=== PATIENT | female | born 1955 | race Caucasian/White ===

== ENCOUNTER 2020-07-14 06:54 | Outpatient (NON) | payer OTHER, SELFPAY ==
[2020-07-14 17:56] LABS: SARS-CoV-2 RNA PCR Positive
== END 2020-07-14 06:55 ==
LOC: ANHCOVIDDT 07:02
PROVIDERS: Visit Provider Physician Assistant
DX: U07.1 COVID-19 (principal)
CPT/HCPCS: 87635; C9803; U0003

== ENCOUNTER 2021-01-18 16:04 | Emergency (ER) | payer BC, SELFPAY ==
[2021-01-18 16:09] VITALS: BP 120/77; PULSE 68; RESP 16; TEMP 37.2; O2SAT 98
--- NOTE | 2021-01-18 17:26 | PC.NURSE ---
aware of xpc status. requested to go out to car to get tea.
--- NOTE | 2021-01-18 17:29 | PC.NURSE ---
returned to room.
--- NOTE | 2021-01-18 18:02 | ED.GENADULT ---
HPI - General Adult General Chief complaint: Skin/Abscess/Foreign Body Stated complaint: bug bite Time Seen by Provider: 01/18/21 18:02 Source: patient and RN notes reviewed Mode of arrival: ambulatory Limitations: no limitations History of Present Illness HPI narrative: 65-year-old female presents with complaints of red, raised, and itching rash to right arm for 1 day. ?Krystyna reports being outside in the yard working, later noticed increasing areas and itching upon entering home. Increasing redness today. Calamine lotion without improvement. Denies new detergent, personal hygiene products or laundry detergents. ?No new foods or medications. ?Tolerating p.o. intake. ?No swelling, burning, bleeding, or drainage. ?Denies fever, chills, headaches, weakness, fatigue, myalgia, facial swelling, or tongue swelling. ?Denies dyspnea. Remains active. ?The patient reports she has not been diagnosed with COVID-19. ?The patient reports she received 2 Pfizer COVID-19 vaccines. ?The patient reports she is not waiting for the results of a COVID-19 lab test. ?The patient reports she does not have a new or worsening cough. Denies chest pain. The patient reports she does not have any rhinorrhea, congestion, sore throat, loss of taste, nausea, vomiting, abdominal pain, and diarrhea. ?Denies recent traveling. ?Denies concerns for COVID-19 or exposures. ?At this time, the patient is not suspected of having COVID-19. Some parts of this dictation were generated by voice recognition software and may contain typographical and/or grammatical inaccuracies. Related Data Allergies Allergy/AdvReac Type Severity Reaction Status Date / Time No Known Allergies Allergy Unknown Verified 06/29/20 13:30 Review of Systems Review of Systems: Narrative: CONSTITUTIONAL: Denies fever, chills, sweats. EYES: Denies visual changes, redness, discharge. ENT: Denies otalgia, rhinorrhea, congestion, sore throat. CARDIOVASCULAR: Denies chest pain, palpitations, edema. RESPIRATORY: Denies dyspnea, wheezing, cough. GASTROINTESTINAL: Denies abdominal pain, nausea, vomiting, diarrhea. SKIN: Complains of red, raised, and itching rash to right arm. Denies drainage. MUSCULOSKELETAL: Denies acute back pain, joint pain, or myalgia. NEUROLOGIC: Denies numbness or focal weakness. PSYCHIATRIC: Denies anxiety or depression. All systems reviewed & are unremarkable except as noted in HPI and below. [facility] Past Medical History Medical History (Updated 01/19/21 @ 00:00 by Domingo Pond) Anxiety Small cell lung cancer Surgical History Surgical History (Updated 01/24/21 @ 08:59 by ELENA Cervantes) No significant past surgical history Family History Family History (Updated 01/24/21 @ 08:58 by ELENA Cervantes) Father Cancer Mother Alive and well Social History Social History (Updated 01/24/21 @ 08:57 by ELENA Cervantes) Smoking status: Former smoker Tobacco type: cigarettes Second hand tobacco smoke exposure: No Smoking end date: 07/15/14 Alcohol intake: current Drinks per week: 1 Substance use: never Substance use type: does not use Living arrangements: alone Occupation/Education: occupation Gender identity (if verbalized by the patient): Female Comments At time of signature, agree with the nurse past medical, surgical, social, and family history. There is no relevant family history pertinent to the presenting complaint. Exam Narrative: Exam Narrative: GENERAL: This is a well-nourished, well-developed patient, in no apparent distress. Talks in full sentences and ambulates with steady gait without dyspnea. HEAD: Normocephalic, atraumatic. EYES: PERRL. Sclera clear/white. Vision is grossly intact. THROAT: Mucous membranes moist, posterior pharynx clear. NECK: Neck supple, non-tender without lymphadenopathy, masses, or thyromegaly. CARDIOVASCULAR: Regular rate and rhythm without murmurs, gallops, or rubs.
== END 2021-01-18 18:30 | disposition home or self-care (01) ==
PROVIDERS: Emergency Provider Nurse Practitioner Family; PCP Family Medicine
DX: L03.113 Cellulitis of right upper limb (principal); S50.861A Insect bite (nonvenomous) of right forearm, initial encounter; W57.XXXA Bitten or stung by nonvenomous insect and other nonvenomous arthropods, initial encounter; F41.9 Anxiety disorder, unspecified; Z85.118 Personal history of other malignant neoplasm of bronchus and lung; Z87.891 Personal history of nicotine dependence; Z92.21 Personal history of antineoplastic chemotherapy; Z92.3 Personal history of irradiation
CPT/HCPCS: 99213; G0463

== ENCOUNTER 2021-05-26 16:46 | Emergency (ER) | payer BC, SELFPAY ==
--- NOTE | ~2021-05-26 | XR_ITS ---
EXAMINATION: XR hand LT min 3V EXAM DATE: 05/26/2021 17:22 INDICATION: Fell in garage 2 days ago, persistent pain, bruising left hand. Initial encounter. TECHNIQUE: Left hand frontal, lateral and oblique projections obtained and reviewed. There is no savannah or study for comparison. 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 Otherwise mild polyarticular osteoarthritis. There are no acute fractures or dislocations identified. There is no subcutaneous gas. The soft tissue is unremarkable. There are no radiopaque foreign bodies. IMPRESSION: 1. XR hand LT min 3V exam without acute osseous findings. 2. 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 Reviewed, dictated and finalized at location A. [employer]
[2021-05-26 17:03] VITALS: BP 128/73; PULSE 73; RESP 20; TEMP 36.8; O2SAT 100
--- NOTE | 2021-05-26 17:24 | ED.UPPEXIN ---
HPI - Extremity Injury (Upper) General Chief Complaint: Extremity Injury, Upper Stated Complaint: left hand Source: patient and RN notes reviewed Limitations: no limitations History of Present Illness HPI narrative: The patient, previously mostly healthy, presents with left hand pain. Patient states she slipped and fell couple days ago; she complains of mild pain at the knuckles of her index and long finger, that is worse with activity, better with rest. No bleeding, deformity but there is swelling in the palm of the hand Related Data Allergies Allergy/AdvReac Type Severity Reaction Status Date / Time No Known Allergies Allergy Unknown Verified 05/26/21 17:10 Review of Systems Review of Systems: General/Constitutional: No weight loss,fever Eyes: N0: Redness,discharge Ears/Nose/Throat: No: Epistaxis,ear discharge Respiratory: Denies: Hemoptysis Gastrointestinal: No Vomiting, Bleeding-rectal Skin: No Lumps, eruption Neurologic: No Focal Weakness,Sz Hematologic: Denies: Petechiae/Purpura Psychiatric: No: Suicida ideationl All Other Systems: Reviewed and Negative [facility] Past Medical History Medical History (Updated 05/26/21 @ 17:41 by Freddy Mckeon MD) Anxiety Small cell lung cancer Surgical History Surgical History (Updated 01/24/21 @ 08:59 by ELENA Cervantes) No significant past surgical history Family History Family History (Updated 01/24/21 @ 08:58 by ELENA Cervantes) Father Cancer Mother Alive and well Social History Social History (Updated 01/24/21 @ 08:57 by ELENA Cervantes) Smoking status: Former smoker Tobacco type: cigarettes Second hand tobacco smoke exposure: No Smoking end date: 07/15/14 Alcohol intake: current Drinks per week: 1 Substance use: never Substance use type: does not use Gender identity (if verbalized by the patient): Female Comments At time of signature, agree with nursing past medical, surgical, social and family history. There is no relevant family history pertinent to the presenting complaint Exam Narrative: General Appearance: Well appearing, , Conjunctiva clear Ears: External ear normal, Auditory canal normal Nose: Normal nose, Nares clear Mouth/Throat: Normal appearing, Normal lips, Respiratory: Airway patent, No respiratory distress Ms-hand: Nl strength (mostly intact, limited flexion/extension by pain), Tenderness (index MCP J, with mild decreased ROM), Swelling (index and long MCP J), Other (no anterior drawer, no collateral laxity) Skin: Warm, Dry; bruise/bluish palm of hand Neurological: A&O x3, Speech clear, CN II-XII intact Psychiatric: Normal mood, Normal affect Course Course Emergency Course: Films visualized, interpreted by radiologist, agree, normal see report Vital Signs Vital signs: Vital Signs Temperature 98.3 F 05/26/21 17:03 Pulse Rate 73 05/26/21 17:03 Respiratory Rate 20 05/26/21 17:03 Blood Pressure 128/73 05/26/21 17:03 Pulse Oximetry 100 05/26/21 17:03 Temperature 98.3 F 05/26/21 17:03 Pulse Rate 73 05/26/21 17:03 Respiratory Rate 20 05/26/21 17:03 Blood Pressure 128/73 05/26/21 17:03 Pulse Oximetry 100 05/26/21 17:03 Discharge Plan Discharge Clinical Impression: Sprain of left hand Qualifiers: Encounter type: initial encounter Qualified Code(s): S63.92XA - Sprain of unspecified part of left wrist and hand, initial encounter Patient Disposition: Home, Self-Care Condition: Stable Instructions: Hand Sprain (ED) Additional Instructions: Get and wear waterproof splint, as you declined the one from here See PMD in follow-up Prescriptions: New tramadol 50 mg tablet 50 - 75 mg PO Q6H PRN (Reason: pain) Qty: 30 RF: 0 No Action loratadine [Claritin] 10 mg tablet 10 mg PO DAILY 30 Days Qty: 30 RF: 0 ergocalciferol (vitamin D2) [Vitamin D2] 1,250 mcg (50,000 unit) capsule 1,250 mcg PO WEEKLY Qty
== END 2021-05-26 17:44 | disposition home or self-care (01) ==
PROVIDERS: Emergency Provider Emergency Medicine; PCP Family Medicine
DX: S63.92XA Sprain of unspecified part of left wrist and hand, initial encounter (principal); W01.0XXA Fall on same level from slipping, tripping and stumbling without subsequent striking against object, initial encounter; Z85.118 Personal history of other malignant neoplasm of bronchus and lung; Z87.891 Personal history of nicotine dependence
CPT/HCPCS: 73130; 99213; G0463

== ENCOUNTER 2022-07-16 14:06 | Emergency (ER) | payer MEDICARE, SELFPAY ==
--- NOTE | ~2022-07-16 | CT_ITS ---
EXAMINATION: CTA chest PE protocol DATE: 07/16/2022 19:24 INDICATION: pleuritic rib pain, back pain, lung cancer TECHNIQUE: Computed tomography angiography (CTA) of the chest was performed with 100 mL Omnipaque-350 intravenous contrast timed to evaluate the pulmonary arteries. Coronal maximum intensity projection 3D-reconstructions were created by the technologist. The dose-length product (DLP) was 138.49 mGy-cm. Automated exposure control and iterative reconstruction technique were employed. COMPARISON: None. FINDINGS: Lung parenchyma and airways: Spiculated left upper lobe mass. Calcified granulomas. Mild emphysematou s change. Pleura: Unremarkable. Thoracic inlet, axillae and chest wall: Unremarkable. Thoracic aorta: Normal. Mediastinum: Calcified mediastinal lymph nodes. Heart and pericardium: Normal. Coronary artery calcifications: Absent. Upper abdomen: No significant finding. Bones: No acute osseous finding. Pulmonary arteries: Study quality: Adequate. No pulmonary emboli detected. IMPRESSION: No CT evidence of acute pulmonary embolus. Chronic and incidental findings detailed above. Reviewed, dictated and finalized at location K. [facility] OUTSIDE IMPRESSION: No CT evidence of acute pulmonary embolus. Chronic and incidental findings deta iled above.
--- NOTE | ~2022-07-16 | XR_ITS ---
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 X-ray shoulder 06/29/2020. RESULT: Lines, tubes, and devices: None. Lungs and pleura: Decreased size of the previously described left suprahilar mass/opacity. Mild didier scent change. Cardiomediastinal silhouette: Stable. Other: No acute osseous or upper abdominal finding. Distal acromial osteolysis versus postsurgical c hange. IMPRESSION: No acute cardiopulmonary process. Distal acromial osteolysis versus postsurgical change. Reviewed, dictated and finalized at location K. M TRAP WORKER IMPRESSION: No acute cardiopulmonary process. Distal acromial osteolysis versus postsurgica l change.
--- NOTE | 2022-07-16 14:16 | ECG_ITS ---
Measurements Intervals [place] Rate: 85 P: 71 NC: 163 QRS: 63 QRSD: 76 T: 62 QT: 356 QTc: 424 Interpretive Statements SINUS RHYTHM DELAYED PRECORDIAL R/S TRANSITION BASELINE ARTIFACT- I, II, II, AVR, AVL BORDERLINE ECG COMPARED TO ECG 04/28/2019 18:54:49 NO SIGNIFICANT CHANGES Electronically Signed On 07-17-2022 16:16:18 PEST LOCATOR by Al Read D.O.
[2022-07-16 14:17] VITALS: BP 139/73; PULSE 87; RESP 16; TEMP 36.3; O2SAT 97
[2022-07-16 14:31] LABS: Basophils Absolute Auto 0.1 K/mm3 (0.0-0.1); Basophils Percent Auto 0.7 % (0.2-1.2); Eosinophils Absolute Auto 0.2 K/mm3 (0-0.3); Eosinophils Percent Auto 2.3 % (0-4.4); Hematocrit 37.3 % (37.0-47.0); Hemoglobin 12.5 g/dL (12.0-15.0); Immature Granulocyte Absolute 0.02 K/mm3 (0.00-0.031); Immature Granulocyte Percent A 0.2 % (0-0.5); Lymphocytes Absolute Auto 1.18 K/mm3 (0.9-3.2); Lymphocytes Percent Auto 14.5 % (18.3-44.2); Mean Corpuscular HGB Conc 33.5 g/dl (32-36); Mean Corpuscular Hemoglobin 32.3 pg (26-34); Mean Corpuscular Volume 96.4 fl (80-100); Mean Platelet Volume 10.1 fl (7.4-10.4); Monocytes Absolute Auto 0.7 K/mm3 (0.1-0.6); Monocytes Percent Auto 9.1 % (2.6-8.5); Neutrophils Percent Auto 73.2 % (45.5-73.1); Platelet Count Result 359 k/mm3 (150-375); Red Blood Count 3.87 M/mm3 (4.2-5.4); Red Cell Distribution Width 12.9 % (11.5-14.5); White Blood Count 8.2 K/mm3 (4.5-10.0)
[2022-07-16 14:40] LABS: Alanine Aminotransferase 24 U/L (6-35); Albumin Level 4.6 g/dL (3.5-5.1); Alkaline Phosphatase 104 U/L (38-126); Anion Gap 8 mmol/L (8-16); Aspartate Amino Transferase 26 U/L (14-36); Bilirubin,Total 0.4 mg/dL (0.2-1.3); Blood Urea Nitrogen 14 mg/dL (7-17); Calcium 9.2 mg/dL (8.4-10.2); Carbon Dioxide 27 mmol/L (22-30); Chloride 106 mmol/L (98-107); Estimated CRCL calculation 66 ml/min; Estimated Glomerular Filt Rate > 60; Glucose 110 mg/dL (65-110); Lipase 182 U/L (23-300); Potassium 4.1 mmol/L (3.4-5.0); Sodium 141 mmol/L (137-145)
[2022-07-16 14:42] LABS: Prothrombin Time 12.8 Seconds (11.1-14.7)
[2022-07-16 14:43] LABS: Partial Thromboplastin Time 26.8 SECONDS (22.3-36.8)
[2022-07-16 14:52] LABS: Troponin I < 0.012 ng/mL (0.000-0.034)
[2022-07-16 17:26] VITALS: BP 112/62; PULSE 72; RESP 18; O2SAT 100
[2022-07-16 18:05] LABS: Troponin I < 0.012 ng/mL (0.000-0.034)
[2022-07-16 18:36] VITALS: BP 118/66; PULSE 78; RESP 17; O2SAT 99
--- NOTE | 2022-07-16 19:27 | PC.NURSE ---
pt. requesting to leave. states I cannot wait any longer. I have got to get out of here. PT. removed all equipment and monitoring devices. pt. is pacing room. Rn informed pt. Doctor will be updated.
--- NOTE | 2022-07-16 19:35 | ED.CHESTPAIN ---
HPI - Chest Pain General Chief Complaint: Chest Pain Stated Complaint: left rib pain Time Seen by Provider: 07/16/22 17:41 Source: patient and RN notes reviewed Mode of arrival: ambulatory Limitations: no limitations History of Present Illness HPI narrative: THis is a 66 year old female with history of lung cancer who presents for evaluation of chest pain. She states 1 week ago she developed pain in between her shoulder blade. She is unsure of exacerbating or alleviating factors. this pain resolved but then she developed left shoulder pain and left upper arm pain that has now resolved. She is here today with left anterior lower rib pain that has been present for 3 days. This pain seem worse with movement and palpation. She denies any injury and heavy lifting. She denies fever, abdominal pain, nausea, vomiting cough or shortness of breath. She states her pain is not worse with eating. She denies heart disease or lung disease. Related Data Allergies Allergy/AdvReac Type Severity Reaction Status Date / Time No Known Allergies Allergy Unknown Verified 06/06/22 13:50 Review of Systems Constitutional: Constitutional: Denies weakness Cardiovascular: Cardiovascular: Reports chest pain, Denies syncope, Denies rapid heart rate, Denies irregular heart rhythm, Denies leg edema and Denies dyspnea Respiratory: Respiratory: Denies chest congestion, Denies hemoptysis, Denies excessive phlegm production and Denies dyspnea Gastrointestinal: Gastrointestinal: Denies abdominal pain, Denies hematochezia, Denies diarrhea and Denies vomiting Genitourinary: Genitourinary: Denies hematuria and Denies dysuria Musculoskeletal: Musculoskeletal: Reports back pain, Denies joint swelling, Denies loss of height and Denies muscle weakness Neurologic: Denies syncope, Denies focal weakness and Denies weakness PMFSH Past Medical History Medical History Anxiety Small cell lung cancer Surgical History Surgical History No significant past surgical history Family History Family History Father Cancer Mother Alive and well Social History Social History Smoking status: Former smoker Tobacco type: cigarettes Second hand tobacco smoke exposure: No Smoking end date: 07/15/14 Alcohol intake: current Drinks per week: 1 Substance use: never Substance use type: does not use Lack of Transportation: No Lack of Food: Never True Current Housing: I Have Housing Concerned About Future Housing: No Difficulty Paying Gas/Electric Bills: No Difficulty Paying for Meds: No Currently Unemployed: No Education: Bachelor's Degree Difficulty w/ Childcare or Family Care: No Gender identity (if verbalized by the patient): Female Sexual Orientation (if Verbalized by the Patient): Straight or Heterosexual Spiritual care concerns: No Agree to blood products: Yes Exam Const: General: no acute distress and alert Nutritional Appearance: well nourished Orientation/consciousness: patient oriented x3 HENMT: Head: normal to inspection Mouth: Yes Normal oral and palatal mucosa present Eyes: Conjunctivae: conjunctivae normal EOM: EOMs intact bilaterally Neck: Neck: normal visual inspection Chest: Chest palpation & inspection: tenderness (reproducible left anterior lower chest tenderness, no swelling, no crepitus) Resp: Effort & Inspection: normal respiratory effort Auscultation: clear to auscultation bilaterally Cardio: Rate: regular rate Rhythm: regular rhythm Heart sounds: no murmurs GI: GI Palp: Yes Soft to palpation, No Tenderness to palpation present (GI), No Guarding due to palpation present (GI) and No Rigid due to palpation Auscultation: normal bowel sounds Back/Spine/Pelvis: Back: no CVA
== END 2022-07-16 19:40 | disposition home or self-care (01) ==
PROVIDERS: Emergency Medicine; Emergency Provider General Practice; PCP Internal Medicine
DX: R07.89 Other chest pain (principal); Z85.118 Personal history of other malignant neoplasm of bronchus and lung; Z87.891 Personal history of nicotine dependence
CPT/HCPCS: 36415; 71046; 71275; 80053; 83690; 84484; 85025; 85610; 85730; 93005; 99284; Q9967

== ENCOUNTER 2022-09-14 12:56 | Outpatient (CLI) | payer MEDICARE, SELFPAY ==
--- NOTE | ~2022-09-14 | DEXA_ITS ---
Bone Density Report Name: BECCA CURRY Age: 66 Sex: Female Ethnicity: White Date of : 1955 Indication: postmenopausal; screening for osteoporosis; height loss; cancer; Referring Provider: JERRY JOHNSON Study: Bone densitometry was performed. Exam Date: September 14, 2022 Accession number: [id number] Bone Density: Region BMD T-score Z-score Classification AP Spine(L1-L4) 0.818 -2.1 -0.3 Osteopenia Femoral Neck (Left) 0.650 -1.8 -0.3 Osteopenia Total Hip (Left) 0.803 -1.1 0.1 Osteopenia Femoral Neck (Right) 0.595 -2.3 -0.8 Osteopenia Total Hip (Right) 0.800 -1.2 0.1 Osteopenia Total Hip Mean 0.802 -1.2 0.1 Osteopenia World Health Organization criteria for BMD impression classify patients as: Normal (T-score at or above -1.0), Osteopenia (T-score between -1.0 and -2.5), or Osteoporosis (T-score at or below -2.5). 10-year Fracture Risk(1): Major Osteoporotic Fracture 11% Hip Fracture 2.0% Reported Risk Factors: [place] (), Neck BMD=0.595, BMI=22.5 (1) FRAX(R) Version 3.08. Fracture probability calculated for an untreated patient. Fracture probability may be lower if the patient has received treatment. Clinical Information Provided by Patient: Has used the following medications: Prolia (i.e. denosumab), Vitamin D Has the following medical conditions: Cancer Patient maximum height was 63 Drinks caffeinated beverages Onset of menses at age 16 Number of children 1 Impression: The patient has low bone mass, based on the Right Femoral Neck T-score. The patient has an estimated ten-year risk of hip fracture of 2% and an estimated ten-year risk of major fracture of 11%, based on the WHO FRAX algorithm. Discussion: BONE DENSITY IS LOW AT ONE OR MORE SKELETAL SITES. This patient's lowest T-score is low at one or more skeletal sites. It meets the World Health Organization's (WHO) criteria for ?low bone mass? (T-score between -1.0 and -2.5). The patient's 10-year risk of fracture as calculated by FRAX is less than the threshold where pharmacological therapy is recommended by the National Osteoporosis Foundation (NOF). However, all treatment decisions require clinical judgment and consideration of individual patient factors, including patient preferences, comorbidities, previous drug use, risk factors not captured in the FRAX model (e.g., frailty, falls, vitamin D deficiency, increased bone turnover, interval significant decline in bone density) and possible under or overestimation of fracture risk by FRAX. The patient should follow a healthful lifestyle (good nutrition with adequate calcium and vitamin D, and appropriate weight-bearing exercise). Follow-Up: Consider repeating this study in 2 to 3 years to reassess this patient's status, or sooner if there is some new
== END 2022-09-14 12:57 | disposition home or self-care (01) ==
LOC: ANHIMG 12:59
PROVIDERS: PCP Internal Medicine; Visit Provider Obstetrics & Gynecology Gynecology
DX: Z78.0 Asymptomatic menopausal state (principal); M85.88 Other specified disorders of bone density and structure, other site; M85.852 Other specified disorders of bone density and structure, left thigh; M85.851 Other specified disorders of bone density and structure, right thigh
CPT/HCPCS: 77080

== ENCOUNTER 2023-05-20 14:28 | Outpatient (CLI) | payer MEDICARE, SELFPAY ==
[2023-05-20 16:24] LABS: Strep Group A RT-PCR NOT DETECTED (Negative)
== END 2023-05-20 14:29 | disposition home or self-care (01) ==
LOC: ANHLAB 14:31
PROVIDERS: PCP Internal Medicine; Visit Provider Physician Assistant
DX: J02.9 Acute pharyngitis, unspecified (principal)
CPT/HCPCS: 87651

== ENCOUNTER 2024-12-14 14:30 | Outpatient (CLI) | payer MEDICARE, SELFPAY ==
--- NOTE | ~2024-12-14 | DEXA_ITS ---
Bone Density Report Name: BECCA CURRY Age: 69 Sex: Female Ethnicity: White Date of : 1955 Indication: osteopenia; height loss; cancer; Referring Provider: JERRY JOHNSON Study: Bone densitometry was performed. Exam Date: December 14, 2024 Accession number: [id number] Bone Density: Region BMD T-score Z-score Classification AP Spine(L1-L4) 0.775 -2.5 -0.6 Osteoporosis Femoral Neck (Left) 0.616 -2.1 -0.5 Osteopenia Total Hip (Left) 0.867 -0.6 0.7 Normal Femoral Neck (Right) 0.619 -2.1 -0.4 Osteopenia Total Hip (Right) 0.844 -0.8 0.5 Normal Total Hip Mean 0.855 -0.7 0.6 Normal World Health Organization criteria for BMD impression classify patients as: Normal (T-score at or above -1.0), Osteopenia (T-score between -1.0 and -2.5), or Osteoporosis (T-score at or below -2.5). 10-year Fracture Risk: FRAX not reported because: Some T-score for Spine Total or Hip Total or Femoral Neck at or below -2.5 Previous Exams: Region Exam Age BMD T-score BMD Change BMD Change Date g/cm2 vs Baseline vs Previous AP Spine (L1-L4) 12/14/2024 69 0.775 -2.5 -0.043 (-5.3%) -0.043 (-5.3%) 09/14/2022 66 0.818 -2.1 Total Hip(Left) 12/14/2024 69 0.867 -0.6 0.064 (7.9%)* 0.064 (7.9%)* 09/14/2022 66 0.803 -1.1 Total Hip(Right) 12/14/2024 69 0.844 -0.8 0.043 (5.4%)* 0.043 (5.4%)* 09/14/2022 66 0.800 -1.2 *Denotes significance at 95% confidence level, LSC for AP Spine = 0.022 g/cm2, LSC for Total Hip = 0.027 g/cm2 Clinical Information Provided by Patient: Has used the following medications: Boniva (i.e. ibandronate), Prolia (i.e. denosumab), Vitamin D Has the following medical conditions: Cancer Patient maximum height was 65 No regular weight bearing exercise Drinks caffeinated beverages Onset of menses at age 14 Number of children 1 Impression: The patient has osteoporosis, based on the Total Spine T-score. The BMD for the AP Spine (L1-L4) decreased, changing by -5.3% since the last DXA exam. Discussion: INCREASED RISK OF FRACTURE. BONE DENSITY IS UNDESIRABLY LOW AT ONE OR MORE SKELETAL SITES, CONSISTENT WITH POSTMENOPAUSAL OSTEOPOROSIS. This patient's lowest T-score meets the World Health Organization's (WHO) criteria for osteoporosis at one or more sites (T-score -2.5 or below). In untreated patients, the risk of osteoporotic fracture increases approximately two-fold for each 1.0 SD decrease in T-score. Low bone density is not the only risk factor for fracture; also consider factors such as patient's age, frailty or poor health, risk of falling, risk of injury, previous osteoporotic fracture, family history of osteoporosis, cigarette smoking, low body weight, etc. Not everyone with low bone mineral density has osteoporosis; osteomalacia and other metabolic bone disorders should also be considered. Patients who have osteoporosis should be evaluated for specific diseases and conditions (secondary causes) that may cause or contribute to bone loss. The [place] [employer] Clinical Endocrinologists (AACE) and National Osteoporosis Foundation (NOF) recommend pharmacologic intervention for all postmenopausal women whose T-score is in this range. The patient should follow a healthful lifestyle (good nutrition with adequate calcium and vitamin D, and appropriate weight-bearing exercise). Follow-Up: Consider a repeat BMD and Vertebral Fracture Assessment (VFA) exam in 2 years or sooner if medically necessary, to reassess this patient's status. Reported by: ARNIE on 12/14/2024 3:29:00 PM. Reviewed, dictated and finalized at location A.
--- OUTSIDE RECORDS SUMMARY | 2024-12-14 14:45 | XMS_ITS | Referral Summary ---
Author Organization [facility] Main [place] Address [address] [place] [address] Care Team Providers Care Cloth Coverer Name Role Phone Lalita Dowling MD Unavailable [phone] Maulik Plasencia MD Unavailable Lauri Bauñelos MD Unavailable Nathan Barbour DO Primary Care Provider Allergies No known active allergies Medications VITAMIN D2 50,000 unit capsule once a week 9 Active mirtazapine (REMERON) 15 mg tablet Take 1 tablet (15 mg total) by mouth nightly 30 tablet 1 0 Active rscursje-uycf-q in-folic acid 18-0.4 mg tablet Take by mouth Active ibandronate (BONIVA) 150 mg tablet TAKE 1 TABLET BY MOUTH ONCE MONTHLY 3 Active cyclobenzaprine (FLEXERIL) 10 mg tablet TAKE 1 TABLET BY MOUTH EVERY DAY AT BEDTIME NEEDED FOR MUSCLE SPASM 4 Active meloxicam (MOBIC) 7.5 mg tablet TAKE DIRECTED 1 TAB BY MOUTH TWICE A DAY NEEDED PAIN 4 Active ammonium lactate (LAC-HYDRIN) 12 % lotion 4 Active benzonatate (TESSALON) 200 mg capsule TAKE 1 CAPSULE BY MOUTH THREE TIMES A DAY NEEDED FOR COUGH 4 Active busPIRone (BUSPAR) 7.5 mg tablet 7.5 MG ORALLY TWICE A DAY NEEDED FOR ANXIETY 4 Active cefdinir (OMNICEF) 300 mg capsule 300 MG ORALLY EVERY 12 HOURS 4 Active fluticasone propionate (FLONASE) 50 mcg/actuation nasal spray 1 SPRAY INTRANASALLY DAILY ADMINISTER INTO EACH NOSTRIL 4 Active Active Problems Problem Noted Date Diagnosed Date Anemia 09/10/2019 Persons encountering health services in other specified circumstances 07/13/2019 Small cell lung cancer, left upper lobe 06/24/20 19 Cancer Staging:Clinical stage from 10/05/2019: cT1, cN2, cM0 - Signed by Ene Pulido, PhD on 08/10/2020 Lung nodule 05/18/2019 History of abnormal mammogram 08/05/2018 Immunizations Immunization Administration Dates Next Due Hep A, Adult 01/09/2018 Influenza, Trivalent, IM (MDV) 04/12/2018 Pfizer SARS-CoV-2 Monovalent Vaccination (12+ Yrs) PURPLE 10/06/2020,09/13/2020 Social History Tobacco Use Types Packs/Day Years Used Date Smoking Tobacco: Former Cigarettes Q uit: 2019 Smokeless Tobacco: Never Tobacco Cessation:Ready to Q uit: Yes; Counseling Given: No Comments:DO NOT ASK THIS QUESTION IN FRONT OF ANYONE Alcohol Use Standard Drinks/Week Comments Not Currently 0 (1 standard drink = 0.6 oz pur e alcohol) occasionally PHQ-2 Answer Date Recorded PHQ-2 Total Score (If total score is 3 or more points, staff should administer the PHQ-9) 0 03/23/2021 Comments No Sex and Gender Information Value Date Recorded Sex Assigned at Not on file Legal Sex Female 10:33 AM ENGINE MECHANIC Gender Identity Not on file Sexual Orientation Not on file Last Filed Vital Signs Vital Sign Reading Time Taken Comments Blood Pressure 103/66 06/18/2024 11:29 AM ENGINE MECHANIC Pulse 71 06/18/2024 11:29 AM ENGINE MECHANIC Temperature 37 C (98.6 F) 06/18/2024 11:29 AM ENGINE MECHANIC Respiratory Rate 16 06/18/2024 11:29 AM ENGINE MECHANIC Oxygen Saturation 98% 06/18/2024 11:29 AM ENGINE MECHANIC Inhaled Oxygen Concentration - - Weight 58 kg (127 lb 12.8 oz) 06/18/2024 11:29 A M ENGINE MECHANIC Height 160 cm (5' 3) 12/16/2023 10:55 AM CDT Body Mass Index 22.64 12/16/2023 10:55 AM CDT Plan of Treatment Not on file Medical Devices Implanted Type Area Cosmetology Professor Device Identifier Shelf Expiration Date Model / Serial / Lot [employer] [id number] Xcela 8fr 1.6mm 1 Lumen Power Injectable Attach Catheter Fill - [id number] Implanted:Qty: 1 on 07/27/2019 at [facility] [employer] 01/20/2024 [id number] / / [id number] Procedures Procedure Name Priority Date/Time Associated Diagnosis Comments SCREENING MAMMOGRAM BILATERAL W KATYA Schedule Routine, Read Routine (OP Routine) 08/24/2024 1:09 PM ENGINE MECHANIC Screening mammogram, encounter for from Last 3 Months or Most Recently Relevant to Health Maintenance Results * Screening Mammogram Bilateral W Katya (08/24/2024 1:09 PM ENGINE MECHANIC) Anatomical Region Laterality Modality Breast Bilateral Mammography Narrative 08/25/2024 2:52 PM ENGINE MECHANIC Mammogram Technique: Bilateral Digital Breast Tomosynthesis, Bilateral C-view 2D Screening mammogram. Views obtained: bilateral craniocaudal and bilateral mediolateral oblique. Computer Aided Detection was performed. Mammogram Findings: The present examination has been compared to prior imaging studies performed at [facility] on 06/15/2021, 08/22/2022 and 08/23/2023. The breasts are heterogeneously dense, which may obscure small masses. There are benign calcifications in both breasts. Finding remains unchanged from the prior study. There is no suspicious abnormality in either breast. Impression: There is no mammographic evidence of malignancy. Annual screening mammography is recommended. If supplemental screening is desired, breast MRI would be recommended in this patient with heterogeneously dense breasts. OVERALL FINAL ASSESSMENT: BI-RADS CATEGORY 2: Benign. Procedure Note Janessa Mota MD - 08/25/2024 Mammogram Technique: Bilateral Digital Breast Tomosynthesis, Bilateral C-view 2D Screening mammogram. Views obtained: bilateral craniocaudal and bilateral mediolateral oblique. Computer Aided Detection was performed. Mammogram Findings: The present examination has been compared to prior imaging studies performed at [facility] on 06/15/2021, 08/22/2022 and 08/23/2023. The breasts are heterogeneously dense, which may obscure small masses. There are benign calcifications in both breasts. Finding remainsunchanged from the prior study. There is no suspicious abnormality in either breast. Impression: There is no mammographic evidence of malignancy. Annual screening mammography is recommended. If supplemental screeningis desired, breast MRI would be recommended in this patient with heterogeneously dense breasts. OVERALL FINAL ASSESSMENT: BI-RADS CATEGORY 2: Benign. us Self Screening Mammogram IMG MAMMO PROCEDURES Fi nal Result from Last 3 Months or Most Recently Relevant to Health [place] [address] [facility] AETNA MEDICARE GOLD [facility] Address: [address] [place] [address] [facility] CHOICE AET[employer] MEDICARE GOLD Advance Directives For more information, please contact: [phone] * Full Code (Latest Code Status on File) Date Activated Date Inactivated Comments 07/27/2019 12:34 PM 07/27/2019 7:10 PM Care Teams Cloth Coverer Relationship Specialty Start Date End Date Nathan Barbour DO [address] [place] [address] PCP - General Family Medicine 07/29/24 Lalita Dowling MD 11/06/16 Maulik Plasencia MD Radiation Oncologist Radiation Oncology 07/20/19 Lauri Bañuelos MD [address] [place] [address] Medical Oncologist/Reinforcing Iron Worker Helper Medical Oncology 09/08/20
--- OUTSIDE RECORDS SUMMARY | 2024-12-14 14:45 | XMS_ITS | Data Portability ---
Author Organization [facility], Main Office Address [address] [place] [address] Care Team Providers Care Door To Door Salesman Name Role Phone LOIDA ESCALERA Primary Care Provider Assessment No assessment recorded. Plan of Treatment Reminders Order Date Submit Date Provider Last Modified By Organization Details Last Modified Time Details Appointments None recorded. Lab None recorded. Referral None recorded. Procedures removal impacted cerumen requiring instrumenta tion (PROC) 2024 025 [email or web address] Not available 08:06:51 caroline maneuver (PROC) 2024 025 [email or web address] [facility] [place] [facility], [address], [place], [address], 10:32:10 Surgeries None recorded. Imaging None recorded. Medication Orders None recorded. Patient TargetsNo targets recorded. Patient Instructions Encounter Date Encounter Id Patient Instructions Last Modified By Organization Details Last Modified Time 09/03/2024 [id number] discussed with patient likely diagnosis of BPPV given her symptom presentation. She will be referred to PT for Lanexa-Hallpike testing and Caroline maneuvers if indicated. Successfully removed bilateral cerumen impaction with a curette device. [email or web address] Not available 09/03/2024 11:26:47 Reason for Referral None Reported. Problems Name Problem SNOMED Code Status Onset Date Resolution Date Notes Provider Name and Address Organization Details Recorded Time Pain in limb 41801444 Active Not Available [employer] 3 13:29:42 Benign paroxysmal positional vertigo 911370250 Active 2024 Monique Ramirez RN null, [employer] 5 11:21:50 Benign paroxysmal positional vertigo 986561965 Active 2024 ELENA Gerard [address], [place], [address] , [facility] [employer] [facility] 5 11:25:36 Impacted cerumen of bilateral ears 4548419342190 108 Active 2024 ELENA Gerard [address], [facility] [address], [place], [address] , [facility] [employer] [facility] 5 11:25:50 Problem Notes None recorded. Medical Equipment None Reported. Allergies No known drug allergies Medications Name Sig Start Date Stop Date Status Note LastModified by Organization Details LastModified Time cyclobenzap rine 10 mg tablet TAKE 1 TABLET BY MOUTH EVERY DAY AT BEDTIME NEEDED FOR MUSCLE SPASM 09/03 completed Not Available Not Available Not Available ammonium lactate 12 % lotion APPLY SMALL AMOUNT TO AFFECTED AREA DAILY 09/03 completed Not Available Not Available Not Available benzonatate 200 mg capsule TAKE 1 CAPSULE BY MOUTH THREE TIMES A DAY NEEDED FOR COUGH 09/03 completed Not Available Not Available Not Available ondansetron HCl 8 mg tablet 12/30 completed Not Available Not Available Not Available meloxicam 15 mg tablet 12/30 completed Not Available Not Available Not Available prochlorper azine maleate 10 mg tablet 12/30 completed Not Available Not Available Not Available meloxicam 7.5 mg tablet TAKE DIRECTED 1 TAB BY MOUTH TWICE A DAY NEEDED PAIN active Not Available Not Available No t Available alprazolam 0.25 mg tablet 09/03 completed Not Available Not Available Not Available dexamethaso ne 1 mg tablet 09/03 completed Not Available Not Available Not Available dexamethaso ne 4 mg tablet 09/03 completed Not Available Not Available Not Available buspirone 7.5 mg tablet TAKE 1 TABLET TWICE DAILY NEEDED FOR ANXIETY active Not Available Not Available No t Available hydroxyzine HCl 25 mg tablet 12/30 completed Not Available Not Available Not Available ergocalcife rol (vitamin D2) 1,250 mcg (50,000 unit) capsule TAKE 1 EVERY WEEK active Not Available Not Available No t Available lorazepam 1 mg tablet 12/30 completed Not Available Not Available Not Available cefdinir 300 mg capsule 300 MG ORALLY EVERY 12 HOURS 09/03 completed Not Available Not Available Not Available fluticasone propionate 50 mcg/actuati on nasal spray,suspe nsion 1 SPRAY INTRANASA LLY DAILY ADMINISTE R INTO EACH NOSTRIL active Not Available Not Available No t Available naproxen 500 mg tablet 12/30 completed Not Available Not Available Not Available amoxicillin 875 mg-potassiu m clavulanate 125 mg tablet 12/30 completed Not Available Not Available Not Available hydrocodone 7.5 mg-acetamin ophen 325 mg/15 mL oral solution 12/30 completed Not Available Not Available Not Available ibandronate 150 mg tablet TAKE 1 TABLET BY MOUTH MONTHLY active Not Available Not Available No t Available Vitals Date Recorded Body height Body mass index (BMI) Body weight Body temperature Provider Name and Address Organization Details Last Updated DateTime 09/03/2024 157.48 cm 23.4 kg/m2 28687.54 g 97.8 [degF] Monique Ramirez RN [place] [facility] [employer] 09/03/2024 10:49:01 Social History None recorded. Functional Status Question Answer Note LastModified by Organizat ion Details LastModified Time What is your level of alcohol consumption? Occasional [email or web address] Information not available 09/03/2024 Mental Status None recorded. Family History Nothing Reported Notes:NO ENT Medical History Condition Response CANCER: SPECIFY Y Gynecological HistoryNo gynecological history recorded. Obstetrics History GPAL:G 0 P 0 0 0 0 Past Encounters Encounter ID Performer Location Encounter Start Date Encounter Closed Date Diagnosis/Indication Diagnosis SNOMED-CT Code Diagnosis ICD10 Code Diagnosis Note [id number] Ralph Manning MD [facility] [place] [address] [place] [address] 09/03/2024 10:37:16 09/03/2024 11:27:36 Benign paroxysmal positional vertigo 365849115 H81.10 Impacted c erumen of bilateral ears 7861350376 726192 H61.23 bilateral cerumen impaction successful ly removed with a curette device Health Concerns Section Related Observation LastModified by Organization Detai ls LastModified Time None Recorded Concern Status LastModified by Organization Details LastModified Time None Recorded Advance Directives Directive None Recorded Payers Encounter Date Sequence Insurance Name Policy Number Policy Rodriguez Covered Member ID Rodriguez Member ID Guarantor Name 09/03/2024 1 [employer] - [employer] (MEDICARE REPLACEMENT/ ADVANTAGE - HMO) [id number] Krystyna Maolne [id number] Krystyna Malone Notes Date Note Type Note Provider Name and Address Organization Details Recorded Time 09/03/2024 text/html This patient has no significant past medical history. She presents to the office with a complaint of vertigo that began On 08/28/2024 at night when she was rotating from her left side to her right side. she states that the room was spinning. She had another episode on 09/01/2024 with the same symptom presentation.she does state that she has had nausea symptoms that have been pretty constant with this. She has been taking Bonine [id number] for symptom management but does note that this medication makes her tired. She does state that she followed up with her PCP proximally 3 weeks ago due to ear popping. her ear popping began to stop which caused her to have difficulty hearing. She does note that an attempt was made at removing ear wax to her right external auditory canal. She denies any otalgia. She does use hydrogen peroxide on occasion to aid in cerumen softening. Monique Dyer, [facility] [address], [place] [address], [place], [address], [facility] [employer] 09/03/2024 11:26:50 OBGyn Episode No OBEpisode recorded.
--- OUTSIDE RECORDS SUMMARY | 2024-12-14 14:45 | XMS_ITS ---
Author Organization [facility] Main [place] Address [address] [place] [address] Care Team Providers Care Insurance Healthcare Representative Name Role Phone Lalita Dowling MD Unavailable [phone] Maulik Plasencia MD Unavailable Lauri Bañuelos MD Unavailable Nathan Barbour DO Primary Care Provider Active Problems Problem Noted Date Diagnosed Date Anemia 09/10/2019 Persons encountering health services in other specified circumstances 07/13/2019 Small cell lung cancer, left upper lobe 06/24/20 Cancer Staging:Clinical stage from 10/05/2019: cT1, cN2, cM0 - Signed by Ene Pulido, PhD on 08/10/2020 Lung nodule 05/18/2019 History of abnormal mammogram 08/05/2018 Current Treatment and Therapy Plans No current plan information found. Past Treatment and Therapy Plans Blood Products Plan Name Start Date Discontinue Date Treatment Medications Discontinue Reason Plan Provider Adult Blood And Platelet Administration OP (One time use) 09/11/2019 09/24/2023 No medications scheduled. Automatic discontinuation of dormant plans Lauri Sparks MD Oncology Chemotherapy Treatment Plan Name Start Date Discontinue Date Treatment Medications Discontinue Reason Plan Provider Cycles CARBOplatin / Etoposide 21 Day Cycles - Small Cell Lung 07/09/20 19 06/15/2020 CARBOplatin (PARAPLATIN) IVPB in 250 mLetoposide (VEPESID) IVPB in 500 mL Therapy Complete Lauri Sparks MD 4 of 4 cycles started Oncology Supportive Care Therapy Plan Plan Name Start Date Discontinue Date Treatment Medications Discontinue Reason Plan Provider HYDRATION THERAPY PLAN 08/01/2019 09/24/2023 No medications scheduled. Automatic discontinuation of dormant plans Lauri Bañuelos MD Radiation Treatments * Course C2_BRAIN_201910/07/2019 - 10/20/2019 Treatment Period Energy Fraction Dose Fractions Total Dose Plans Planned BRAIN 10/07/2019 - 10/20/2019 250 10 / 2,500 Reference Points Delivered brain 10/07/2019 - 10/20/2019 2,500 * Course C1_LUL_201907/30/2019 - 08/21/2019 Treatment Period Energy Fraction Dose Fractions Total Dose Plans Planned LT LUNG 07/30/2019 - 08/21/2019 150 30 / 4,500 Reference Points Delivered LT LUNG 07/30/2019 - 08/21/2019 4,500 Lifetime Dose Tracking * Chemical Lifetime Dose Automatic Entry Manual Entr y Fluoro Time 0.2 minutes 0.2 minutes 0 minutes etoposide 1,191.784 mg/m2 (1,872 mg) 1,191.784 mg/m 2 (1,872 mg) 0 mg/m2 (0 mg) DLP 6,963 mGycm 6,963 mGycm 0 mGycm
--- OUTSIDE RECORDS SUMMARY | 2024-12-14 14:45 | XMS_ITS | Encounter Summary ---
Author Organization [facility] [place] [address] [place] [address] Care Team Providers Care Towel Sorter Name Role Phone Unavailable Primary Care Provider Unavailabl e Prior Encounters Date Type Department Care Team Description 01/10/2022 12:30 PM CDT Office Visit [facility] [address] [place] [phone] Del Fountain DDS 01/01/2022 10:45 AM CDT Consult [facility] [address] [place] [phone] Del Fountain DDS Plan of Treatment Not on file Procedures Procedure Name Priority Date/Time Associated Diagnosis Comments 19 INTRAORIFICE BARRIER Routine 01/11/20 12:30 PM CDT 19 TREATMENT OF ROOT CANAL OBSTRUCTION; NON-SURGICAL ACCESS Routine 01/10/2022 12:30 PM CDT 19 ENDODONTIC THERAPY, MOLAR TOOTH (EXCLUDING FINAL ANABAPTIST) Routine 01/10/2022 12:30 PM CDT 19 PULP VITALITY TESTS Routine 10:45 AM CDT WELFARE PROJECT MANAGER CONSULT Routine 01/01/2022 1 0:45 AM CDT Visit Diagnoses Not on file Insurance [facility] PPO Member Subscriber Plan / Payer (Ef fective 2021-Present) Name:Krystyna Malone Relation to Subscriber:Self Name:Krystyna Malone Payer ID:[id number] Type:Not on file Address: [place] [phone]
--- OUTSIDE RECORDS SUMMARY | 2024-12-14 14:45 | XMS_ITS | Clinical Summary ---
Author Organization [facility] [place] [address] [place] [address] Care Team Providers Care Plastic Sheets Supervisor Name Role Phone Unavailable Primary Care Provider Unavailabl e Allergies No known active allergies Medications acetaminophen-c odeine (TYLENOL #3) 300-30 mg tablet Take 1 tablet by mouth every 4 (four) hours if needed. for pain 11/17/2021 Active penicillin v potassium (VEETID) 500 mg tablet TAKE 1 TABLET BY MOUTH 4 TIMES A DAY UNTIL GONE 11/17/2021 Active indomethacin (INDOCIN) 25 mg capsule TAKE 1 CAPSULE BY MOUTH 3 TIMES A DAY WITH FOOD NEEDED FOR PAIN 08/11/2021 Active ergocalciferol (VITAMIN D-2) 1,250 mcg (50,000 unit) capsule Take 50,000 Units by mouth 1 (one) time per week. 12/08/2021 Active Active Problems Problem Noted Date Diagnosed Date Anemia 09/10/2019 Social History Tobacco Use Types Packs/Day Years Used Date Smoking Tobacco: Light Smoker E-Cigarettes Smokeless Tobacco: Never Tobacco Cessation:Ready to Q uit: Not Asked; Counseling Given: Not Answered Alcohol Use Standard Drinks/Week Comments Yes 2 (1 standard drink = 0.6 oz pur e alcohol) Comments Unknown Sex and Gender Information Value Date Recorded Sex Assigned at Not on file Legal Sex Female 7:57 AM PDT Gender Identity Not on file Sexual Orientation Not on file Plan of Treatment Health Maintenance Due Date Last Done Comments Dental Oral Exam 1955 Dental Prophylaxis 1955 Dental X-Ray: Bitewings 1955 Dental X-Ray: Full Mouth 1955 Dental X-Ray: Panoramic 1955 Meningococcal B Vaccine Aged Out No l onger eligible based on patient's age to complete this topic Insurance [facility] Member Subscriber Plan / Payer (Ef fective 2021-Present) Name:Krystyna Malone Relation to Subscriber:Self Name:Krystyna Malone Payer ID:[id number] Type:Not on file Address: [place] [phone]
--- OUTSIDE RECORDS SUMMARY | 2024-12-14 14:45 | XMS_ITS | Clinical Summary ---
Author Organization [facility] [address] [place] Address [address] [place] [address] Care Team Providers Care Advertising Campaign Manager Name Role Phone Lalita Dowling MD Unavailable [phone] Maulik Plasencia MD Unavailable Lauri Bañuelos MD Unavailable Nathan Barbour DO Primary Care Provider [phone] Allergies No known active allergies Medications VITAMIN D2 50,000 unit capsule once a week 9 Active mirtazapine (REMERON) 15 mg tablet Take 1 tablet (15 mg total) by mouth nightly 30 tablet 1 0 Active lcsbnibd-hntq-j in-folic acid 18-0.4 mg tablet Take by [...] SARS-CoV-2 Monovalent Vaccination (12+ Yrs) PURPLE 10/06/2020,09/13/2020 Surgical History Surgery Date Site/Laterality Comments PORT PLACEMENT CHEST >5 YEARS 07/27/2019 N/A PORT REMOVAL 09/29/2020 N/A Medical History Medical History Date Comments Anxiety disorder Anxiety - (Adde d by TW Conv) Personal history of other di seases of the respiratory system History of chronic bronchiti s - (Added by TW Conv) Chronic sinusitis Recurrent sinu s infections - (Added by TW Conv) Arthritis Motion sickness Family History Medical History Relation Name Comments Lung cancer Father Family history of lung cancer - (Added by TW Conv) Breast cancer Mother Adenocarcinoma of breast - (Added by TW Conv) Relation Name Status Comments Father Mother Alive Social History Tobacco Use Types Packs/Day Years Used Date Smoking Tobacco: Former Cigarettes Q uit: 2018 Smokeless Tobacco: Never Tobacco Cessation:Ready to Q [...] on file Legal Sex Female 10:33 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 Gender Identity Not on file Sexual Orientation Not on file Obstetrics History Last Filed Vital Signs Vital Sign Reading Time Taken Comments Blood Pressure 103/66 06/18/2024 11:29 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 Pulse 71 06/18/2024 11:29 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 Temperature 37 C (98.6 F) 06/18/2024 11:29 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 Respiratory Rate 16 06/18/2024 11:29 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 Oxygen Saturation 98% 06/18/2024 11:29 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 Inhaled Oxygen Concentration - - Weight 58 kg (127 lb 12.8 oz) 06/18/2024 11:29 A M PLASTICS SEASONER OPERATOR Height 160 cm (5' 3) 12/16/2023 10:55 AM CDT Body Mass Index 22.64 12/16/2023 10:55 AM CDT Plan of Treatment Health Maintenance Due Date Last Done Comments Colon Cancer Screening-Colonoscopy 1955 Hepatitis C Screening 1955 Osteoporosis Screening-Bone Density Scan 1955 DTaP/Tdap/Td Vaccine (1 - Tdap) 1968 Hepatitis B Screening 09/18/1975 Pneumococcal vaccine 65+ (1 of 1 - PCV) 09/18/2007 Zoster Vaccine (1 of 2) 09/18/2007 Fall Risk Assessment 09/29/2021 09/29/2020 Depression Screening 03/23/2022 03/23/2021 Well Visit 65+ 2022 Covid-19 Vaccine (3 - 2023-2 5 season) 2024 10/06/2020, 09/13/2020 Influenza Vaccine (Season Ended) 2025 04/12/20 18 Breast Cancer Screening-Mammogram 08/24/2025 08/24/2024, 08/23/2023, 08/22/2022, Additional history exists Medical Devices Implanted Type Area Procurement Analyst Device Identifier Shelf Expiration Date Model / Serial / Lot [employer] [id number] Xcela 8fr 1.6mm 1 Lumen Power Injectable Attach Catheter Fill - [id number] Implanted:Qty: 1 on 07/27/2019 at [facility] [employer] 01/20/2024 [id number] / / [id number] Procedures Procedure Name Priority Date/Time Associated Diagnosis Comments SCREENING MAMMOGRAM BILATERAL W KATYA Schedule Routine, Read Routine (OP Routine) 08/24/2024 1:09 PM PLASTICS SEASONER OPERATOR Screening mammogram, encounter for from Last 3 Months or Most Recently Relevant to Health Maintenance Results * Screening Mammogram Bilateral W Katya (08/24/2024 1:09 PM PLASTICS SEASONER OPERATOR) Anatomical Region Laterality Modality Breast Bilateral Mammography Narrative 08/25/2024 2:52 PM PLASTICS SEASONER OPERATOR Mammogram Technique: Bilateral Digital Breast Tomosynthesis, Bilateral C-view 2D Screening mammogram. Views obtained: bilateral craniocaudal and bilateral mediolateral oblique. Computer Aided Detection was performed. Mammogram Findings: The present examination has been compared to prior imaging studies performed at [facility] on 06/15/2021, 08/22/2022 and 08/23/2023. The breasts [...] compared to prior imaging studies performed at [facility] on 06/15/2021, 08/22/2022 and 08/23/2023. The breasts [...] Most Recently Relevant to Health Maintenance Insurance [facility] MEDICARE [facility] CHOICE PLUS ANTHEM ACCESS CHOICE [employer] MEDICARE GOLD Advance Directives For more information, please contact: [phone] * Full Code (Latest Code Status on File) Date Activated Date Inactivated Comments 07/27/2019 12:34 PM 07/27/2019 7:10 PM Care Teams Advertising Campaign Manager Relationship Specialty Start Date End Date Nathan Barbour DO [address] [place] [address] PCP - General Family Medicine 07/29/24 Lalita Dowling MD 11/06/16 Maulik Plasencia MD Radiation Oncologist Radiation Oncology 07/20/19 Lauri Bañuelos MD [facility] [address] [place] [address] Medical Oncologist/[facility] Medical Oncology 09/08/20
--- OUTSIDE RECORDS SUMMARY | 2024-12-14 14:45 | XMS_ITS | Clinical Summary ---
Author Organization [facility] Care Team Providers Care Metal Molder Name Role Phone Unavailable Primary Care Provider Unavailabl e Immunizations Immunization Administration Dates Next Due Covid-19, Mrna, Lnp-s, Pf, 30 Mcg/0.3 Ml Dose (Vinnie borges) 10/06/2020,09/13/2020 Social History Tobacco Use Types Packs/Day Years Used Date Smoking Tobacco: Never Assessed Comments Unknown Sex and Gender Information Value Date Recorded Sex Assigned at Not on file Legal Sex Female 11:51 PM CDT Gender Identity Not on file Sexual Orientation Not on file Plan of Treatment Health Maintenance Due Date Last Done Comments DEXA Bone Density 1955 Hepatitis C Virus (HCV) Screening 1955 TdaP Immunization 1955 Colonoscopy 2002 Colorectal Cancer Screening 2002 Cologuard 09/18/2007 Immunochemical Fecal Occult Blood 09/18/2007 Mammogram 09/18/2007 Pneumococcal Immunization (5 0+ years) (1 of 1 - PCV) 09/18/2007 Zoster Immunization (1 of 2) 09/18/2007 Influenza Immunization (#1) 2024 04/12/2018 SARS-COV-2 Immunization ( season) 2024 06/26/2021, 10/06/2020, 09/13/2020 Respiratory Syncytial Virus (RSV) Immunization (Adult) (1 - 1-dose 75+ series) 2032 Hepatitis B Immunization Aged Out No longer eligible based on patient's age to complete this topic Meningococcal Immunization (ACWY) Aged Out No longer eligible b ased on patient's age to complete this topic Rotavirus Immunization Aged Out No lo nger eligible based on patient's age to complete this topic
== END 2024-12-14 14:31 | disposition home or self-care (01) ==
PROVIDERS: Visit Provider Obstetrics & Gynecology Gynecology
DX: Z78.0 Asymptomatic menopausal state (principal); M85.88 Other specified disorders of bone density and structure, other site; M81.0 Age-related osteoporosis without current pathological fracture; M85.852 Other specified disorders of bone density and structure, left thigh; M85.851 Other specified disorders of bone density and structure, right thigh
CPT/HCPCS: 77080